=== PATIENT | female | born 1990 | race Two or more races ===

== ENCOUNTER → 2021-02-01 | Outpatient (CLI) | payer OTHER ==
--- NOTE | 2021-02-02 15:57 | REP ---
INDICATION: INFERTILITY. COMPARISON: None. TECHNIQUE: The endometrium was cannulated and contrast was injected by the attending junior analyst Christian Patricio DO. Fluoroscopic spot films were acquired by RUFINA Alfaro, under the direct supervision of Dr. Chung. Images reviewed prior to dictation with Dr. Chung. FINDINGS: Fluoroscopy spot radiographs document filling of a normal endometrial cavity. There is normal isthmic and ampullary fallopian tube opacification, and bilateral tubal patency was documented. IMPRESSION: Normal hysterosalpingogram with bilateral tubal patency documented. 0.5 minutes of fluoroscopy time was utilized for this procedure. Some fluoroscopic images are performed with last image hold technology. These images require no additional radiation. <Electronically signed by Diamond Schilling > 02/02/21 [id number] <Electronically signed by Cleveland Chung > 02/02/21 [id number]
== END ==
LOC: M RADPRO 12:05
PROVIDERS: ATTEND Obstetrics & Gynecology
DX: N97.9 Female infertility, unspecified (principal)